=== PATIENT | male | born 1975 | race Caucasian/White ===

== ENCOUNTER 2020-10-01 09:27 | Outpatient (CLI) | payer OTHER, SELFPAY ==
[2020-10-01 10:50] LABS: Influenza A QL RT-PCR Negative (Negative); Influenza B QL RT-PCR Negative (Negative); SARS-CoV-2 RNA PCR Negative (Negative)
== END 2020-10-01 09:28 | disposition home or self-care (01) ==
PROVIDERS: PCP Internal Medicine; Visit Provider Internal Medicine
DX: R50.9 Fever, unspecified (principal); R52 Pain, unspecified; Z20.822 Contact with and (suspected) exposure to COVID-19
CPT/HCPCS: 87502; C9803; U0003; U0005

== ENCOUNTER 2020-10-08 05:05 | Emergency (ER) | payer OTHER, SELFPAY ==
--- NOTE | ~2020-10-08 | XR_ITS ---
EXAMINATION: XR chest 2V DATE: 10/08/2020 06:20 INDICATION: Chills and diarrhea TECHNIQUE: PA and lateral views of the chest were obtained. COMPARISON: Chest radiograph dated 03/09/2015 FINDINGS: Consolidation with air bronchograms in the posterior left lower lobe consistent with pneumonia. Right lung remains clear. No pleural effusion or pneumothorax. The cardiomediastinal silhouette is normal. Visualized bones and soft tissues are unremarkable. IMPRESSION: 1. Left lower lobe pneumonia. Reviewed, dictated and finalized at location A.
[2020-10-08 05:05] VITALS: BP 127/89; PULSE 95; RESP 20; TEMP 36.1; O2SAT 97
--- NOTE | 2020-10-08 05:22 | ECG_ITS ---
Measurements Intervals [place] Rate: 89 P: 36 KS: 163 QRS: -2 QRSD: 105 T: 15 QT: 346 QTc: 423 Interpretive Statements SINUS RHYTHM NORMAL ECG Electronically Signed On 10-08-2020 7:15:17 CDT by Jake Javier D.O.
--- NOTE | 2020-10-08 05:26 | ED.SOB ---
HPI - SOB/Dyspnea General Chief Complaint: Shortness of Breath/Dyspnea Stated Complaint: sickness Time Seen by Provider: 10/08/20 05:20 Source: patient Mode of arrival: ambulatory Limitations: no limitations History of Present Illness HPI Narrative: Patient comes in stating he has had mild shortness of breath, associated with anxiety, poor appetite, feeling he can't eat or sleep, with loose stools. He states he has body aches, has been cold and hot, and has felt clammy at times. He has felt short of breath at times. He cannot focus to give me any sort of coherent history. It appears that this has been associated with moderately severe anxiety, ongoing for at least a week. No modifying factors, or other associates signs or symptoms. He cannot identify any precipitaing cause for these symptoms. MD elicited complaint: shortness of breath Pertinent past history: other (anxiety disorder) Onset (ago): week(s) Context: anxiety Timing: constant Severity: severe Exacerbating factors: stress Associated symptoms: denies other symptoms Related Data Home Medications Medication Instructions Recorded Confirmed lisinopril 5 mg PO DAILY 10/08/20 10/08/20 lovastatin 20 mg PO BOLUS 10/08/20 10/08/20 Allergies Allergy/AdvReac Type Severity Reaction Status Date / Time No Known Allergies Allergy Verified 10/08/20 05:17 Review of Systems Constitutional: Constitutional: Reports chills, Reports fatigue and Reports weakness Eyes: Eyes: Reports no additional eye complaints ENT: Reports system reviewed and no additional complaints, except as documented Cardiovascular: Cardiovascular: Reports no additional cardiovascular complaints Respiratory: Respiratory: Reports dyspnea Gastrointestinal: Gastrointestinal: Reports diarrhea Genitourinary: Genitourinary: Reports no additional male genitourinary complaints Musculoskeletal: Musculoskeletal: Reports no additional musculoskeletal complaints Integumentary/Breasts: Skin/Breast: Reports system reviewed and no additional complaints, except as docu Neurologic: Reports system reviewed and no additional complaints, except as documented Psychiatric: Psychiatric: Reports no additional psychiatric complaints Endocrine: Endocrine: Reports excessive sweating Comments: diaphoretic at times Hematologic/Lymphatic: Hematologic/Lymphatic: Reports no additional hematologic/lymphatic complaints Allergic/Immunologic: Allergic/Immunologic: Reports no additional allergic/immunologic complaints PMFSH Past Medical History Medical History (Updated 10/08/20 @ 07:13 by Hever Boateng MD) HTN (hypertension) Hyperlipidemia Nail fungus Renal calculi Surgical History Surgical History (Updated 10/08/20 @ 06:13 by Hever Boateng MD) H/O rhinoplasty History of carpal tunnel surgery History of lithotripsy Family History Family History (Updated 10/08/20 @ 06:15 by Hever Boateng MD) Mother Cerebrovascular accident Father Heart disease Myocardial infarction Social History Social History (Updated 10/08/20 @ 06:16 by Hever Boateng MD) Smoking status: Never smoker Alcohol use details: rare minimal alcohol use Substance use: never Exam Const: General: healthy appearing and no acute distress Orientation/consciousness: patient oriented x3 HENMT: Head: normal to inspection Ears: external ears normal and TM's normal bilaterally General nose exam: Normal external nose present Mouth: Yes Normal oral and palatal mucosa present Throat: posterior oropharynx normal Eyes: Conjunctivae: conjunctivae normal Neck: Neck: normal visual inspection Chest: Chest palpation & inspection: normal inspection of the chest Resp: Effort & Inspection: normal respiratory effort Auscultation: clear to auscultation bilaterally Cardio: Rate: regular rate Rhythm: regular rhythm GI: GI Palp: Yes Soft to palpation (nontender) Auscultation: normal bowel sounds Back/Spine/Pelvis: Back: no CVA tende
[2020-10-08] MEDS: LACTATED RINGERS 1,000 ML 250 ML IV CONT (05:44)
[2020-10-08 05:59] LABS: Hematocrit 41.6 % (40.0-54.0); Hemoglobin 14.1 g/dL (14.0-18.0); Immature Platelet Fraction Pct 4.1 % (1.0-7.0); Mean Corpuscular HGB Conc 33.9 g/dL (32.0-36.0); Mean Corpuscular Hemoglobin 30.5 pg (27.0-31.0); Mean Platelet Volume 10.7 fl (8.7-11.0); Platelet Count Result 122 K/mm3 (150-420); Red Blood Count 4.62 M/mm3 (4.70-6.10); Red Cell Distribution Width 11.7 % (11.6-14.4); White Blood Count 3.7 K/mm3 (4.8-10.8)
[2020-10-08 06:03] LABS: Add Urine Microscopic? YES; Appearance Urine Clear (Clear); Bilirubin Urine Negative (Negative); Blood Urine Negative (Negative); Color Urine Yellow (Yellow); Glucose Urine UA Negative (Negative); Ketones Urine Trace (Negative); Leukocyte Esterase Ur Negative (Negative); Nitrate Urine Negative (Negative); Protein Urine Trace (Negative); Specific Grav Ur 1.025 (1.010-1.020); Urobilinogen Urine 0.2 mg/dL (0.2-1.0); pH Urine 5.5 (5.0-8.0)
[2020-10-08 06:06] LABS: Bacteria Urine Trace /hpf; Mucus Urine Few /lpf; RBC Urine None seen /hpf (0-2); Squamous Epithelial Cell Urine Few /hpf (Few); WBC Urine None seen /hpf (0-3)
[2020-10-08 06:18] LABS: Alanine Aminotransferase 34 U/L (16-63); Albumin Level 3.4 g/dL (3.4-5.0); Alkaline Phosphatase 56 U/L (46-116); Amphetamine Screen Urine Negative (Negative); Anion Gap 10 mmol/L (8-16); Aspartate Amino Transferase 31 U/L (15-37); Barbiturate Screen Urine Negative (Negative); Benzodiazepines Screen Urine Negative (Negative); Bilirubin,Total 0.5 mg/dL (0.00-1.00); Blood Urea Nitrogen 13 mg/dL (7-18); Calcium 8.3 mg/dL (8.5-10.1); Cannabinoid Screen Urine Negative (Negative); Carbon Dioxide 29 mmol/L (21-32); Chloride 100 mmol/L (98-108); Cocaine Screen Urine Negative (Negative); Estimated CRCL calculation 87 ml/min; Estimated Glomerular Filt Rate > 60; Glucose 97 mg/dL (70-99); Methadone Screen Urine Negative (Negative); Opiate Screen Urine Negative (Negative); Osmolality Calculated 288 mOsm/kg (285-295); Phencyclidine Screen Urine Negative (Negative); Potassium 3.7 mmol/L (3.5-5.1); Sodium 139 mmol/L (136-145); Total Protein 7.6 g/dL (6.4-8.2)
[2020-10-08 06:22] LABS: CRP 5.1 mg/dL (0.0-0.9); D Dimer 0.33 mg/L (0.19-0.50); Magnesium 2.1 mg/dL (1.8-2.4)
[2020-10-08 06:22] LABS: NT Pro B Type Natriuretic Pept 21 pg/mL (0-125); Troponin I 5.2 ng/L (0.00-60.4)
[2020-10-08 06:27] LABS: Band Neutrophils Percent 0 % (0-6); Basophils Percent Manual 0 % (0-1); Eosinophils Absolute Manual 0.03 K/mm3 (0.02-0.5); Eosinophils Percent Manual 1 % (1-6); Lymphocytes Absolute Manual 0.99 K/mm3 (1.1-4.5); Lymphocytes Percent Manual 27 % (18-44); Monocytes Absolute Manual 0.51 K/mm3 (0.1-0.90); Monocytes Percent Manual 14 % (3-9); Neutrophils Absolute Manual 2.14 K/mm3 (1.3-6.7); Neutrophils Percent Manual 58 % (46-73); Total Cells Counted 100
[2020-10-08 06:28] LABS: Platelet Estimate Adequate (Adequate)
[2020-10-08 06:32] VITALS: BP 119/80; PULSE 79; RESP 18; O2SAT 97
[2020-10-08 06:34] LABS: Free T4 Free Thyroxine 1.35 ng/dL (0.76-1.46)
[2020-10-08 06:40] LABS: SARS-CoV-2 RNA PCR Negative (Negative)
[2020-10-08 06:41] LABS: Influenza B QL RT-PCR Negative (Negative)
[2020-10-08 06:42] LABS: Influenza A QL RT-PCR Negative (Negative)
[2020-10-08 07:02] LABS: Erythrocyte Sedimentation Rate 40 mm/hr (0-15)
[2020-10-08 07:14] VITALS: BP 120/80; PULSE 72; RESP 18; TEMP 36.6; O2SAT 97
== END 2020-10-08 07:17 | disposition home or self-care (01) ==
PROVIDERS: Emergency Provider Emergency Medicine; PCP Internal Medicine
DX: J18.9 Pneumonia, unspecified organism (principal); Z20.822 Contact with and (suspected) exposure to COVID-19; I10 Essential (primary) hypertension; E78.5 Hyperlipidemia, unspecified
CPT/HCPCS: 36415; 71046; 80053; 80307; 81001; 83605; 83735; 83880; 84439; 84443; 84484; 85025; 85055; 85380; 85652; 86140; 87502; 93005; 96360; 99283; 99284; C9803; J7120; U0003; U0005

== ENCOUNTER 2020-10-17 17:43 | Outpatient (CLI) | payer OTHER, SELFPAY ==
--- NOTE | ~2020-10-17 | XR_ITS ---
EXAMINATION: XR chest 2V DATE: 10/17/2020 17:58 INDICATION: Pneumonia, shortness of breath TECHNIQUE: PA and lateral views of the chest are obtained. COMPARISON: 10/08/2020 FINDINGS: There are persistent but decreased opacities of left lower lobe. There is no pleural effusi on or pneumothorax. The cardiomediastinal silhouette is normal. The visualized bones and soft tissues are unremarkable. IMPRESSION: 1. Persistent but decreased opacities of the left lower lobe, consistent with resolving pneumonia. Reviewed, dictated and finalized at location A. IMPRESSION: 1. Persistent but decreased opacities of the left lower lobe, consistent with r esolving pneumonia.
== END 2020-10-17 17:44 | disposition home or self-care (01) ==
LOC: CHSIMG 17:45
PROVIDERS: PCP Internal Medicine; Visit Provider Internal Medicine
DX: J18.9 Pneumonia, unspecified organism (principal)
CPT/HCPCS: 71046

== ENCOUNTER 2020-10-31 16:52 | Outpatient (CLI) | payer OTHER, SELFPAY ==
--- NOTE | ~2020-10-31 | XR_ITS ---
XR chest 2V DATE: 10/31/2020 17:08 INDICATION: Pneumonia 4 weeks ago TECHNIQUE: 2 views COMPARISON: 10/17/2020 and 10/08/2020 two-view chest radiographic examination FINDINGS: Normal heart size. No hilar or mediastinal enlargement. The lungs are clear of infiltrate or consolidation. There is interval resolution of left lower lobe i nfiltrate since 10/08/2020. No pleural effusion or pulmonary vascular congestion or pneumothorax. IMPRESSION: No active cardiopulmonary disease; resolution of left lower lobe pneumonia Reviewed, dictated and finalized at location A. IMPRESSION: No active cardiopulmonary disease; resolution of left lower lobe pn eumonia
== END 2020-10-31 16:53 | disposition home or self-care (01) ==
LOC: CHSIMG 16:54
PROVIDERS: PCP Internal Medicine; Visit Provider Internal Medicine
DX: J18.9 Pneumonia, unspecified organism (principal)
CPT/HCPCS: 71046

== ENCOUNTER 2020-12-12 17:07 | Outpatient (CLI) | payer OTHER, SELFPAY ==
--- NOTE | ~2020-12-12 | CT_ITS ---
EXAMINATION: CT abdomen pelvis wo con DATE: 12/12/2020 17:30 INDICATION: Painful hematuria. Left flank pain. TECHNIQUE: Computed tomography (CT) of the abdomen and pelvis was performed without intravenous contr ast. Automated exposure control and iterative reconstruction technique were employed. The dose-length product was 313.68 mGy-cm. COMPARISON: 09/09/2017 FINDINGS: Lung bases are clear. Heart size is normal. No pericardial or pleural effusion. Liver, decompressed g allbladder, spleen, pancreas and bilateral adrenal glands are normal. Bilateral kidneys are normal wi th no nephrolithiasis or hydronephrosis. 2-3 mm stone in the distal left ureter approximately 5 cm pr oximal to the ureterovesicular junction. There is minimal inflammatory stranding surrounding the uret er at the site of the stone. There is mild colonic diverticulosis with a sigmoid predominance. There is no adjacent inflammatory change to suggest diverticulitis. Small bowel and appendix are normal. Bladder is normal. No free intraperitoneal gas or fluid. No pathologically enlarged abdominal or pelv ic lymphadenopathy. Chronic mild anterior wedging at T12. IMPRESSION: 1. Nonobstructing 2-3 mm distal left ureteral stone. 2. Mild diverticulosis. Reviewed, dictated and finalized at location A.
== END 2020-12-12 17:08 | disposition home or self-care (01) ==
LOC: CHSIMG 17:11
PROVIDERS: PCP Internal Medicine; Visit Provider Internal Medicine
DX: R31.9 Hematuria, unspecified (principal); R10.9 Unspecified abdominal pain
CPT/HCPCS: 74176

== ENCOUNTER 2021-05-03 14:33 | Outpatient (CLI) | payer OTHER, SELFPAY ==
[2021-05-03 16:59] LABS: Influenza A QL RT-PCR Negative (Negative); Influenza B QL RT-PCR Negative (Negative); SARS-CoV-2 RNA PCR Negative (Negative)
== END 2021-05-03 14:34 | disposition home or self-care (01) ==
LOC: CHSLAB 14:36
PROVIDERS: PCP Internal Medicine; Visit Provider Internal Medicine
DX: J06.9 Acute upper respiratory infection, unspecified (principal); Z20.822 Contact with and (suspected) exposure to COVID-19
CPT/HCPCS: 87502; C9803; U0003; U0005

== ENCOUNTER 2024-09-03 08:50 | Outpatient (CLI) | payer BC, SELFPAY ==
--- OUTSIDE RECORDS SUMMARY | 2024-09-03 08:58 | XMS_ITS | Clinical Summary ---
Author Organization [facility] Address [address] [place] [address] Care Team Providers Care Enrichment Specialist Name Role Phone Dee Dee Edwards MD Primary Care Provider Allergies No known active allergies Medications lovastatin (MEVACOR) 20 MG tablet Take 1 tablet (20 mg total) by mouth daily with supper. Active lisinopril (PRINIVIL) 20 MG tablet Take 1 tablet (20 mg total) by mouth daily. Active venlafaxine XR (EFFEXOR-XR) 37.5 MG 24 hr capsule Take 1 capsule (37.5 mg total) by mouth daily. Active ondansetron (ZOFRAN-ODT) 4 MG disintegrating tablet Take 1 tablet (4 mg total) by mouth every 8 (eight) hours as needed for Nausea. 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 Gender Identity Not on file Sexual Orientation Not on file Last Filed Vital Signs Vital Sign Reading Time Taken Comments Blood Pressure 137/90 01/04/2023 11:30 AM CDT Pulse 70 01/04/2023 11:30 AM CDT Temperature 35.3 C (95.5 F) 01/04/2023 10:04 AM CDT Respiratory Rate 18 01/04/2023 11:30 AM CDT Oxygen Saturation 99% 01/04/2023 11:30 AM CDT Inhaled Oxygen Concentration - - Weight 106.1 kg (234 lb) 01/04/2023 10:04 AM CDT Height 190.5 cm (6' 3 ) 01/04/2023 10:04 AM CDT Body Mass Index 29.25 01/04/2023 10:04 AM CDT Plan of Treatment Health Maintenance Due Date Last Done Comments Colorectal Cancer Screening Colonoscopy (10 Years) 1973 Annual Physical 01/09/1976 Hepatitis C 1991 Hepatitis B Vaccines (1 of 3 - 19+ 3-dose series) 01/09/1992 Zoster Vaccines (1 of 2) 2023 COVID-19 Vaccine (3 - 2023-2 5 season) 2024 01/06/2021, 12/14/2020 Influenza Adult (#1) 2024 DTaP, Tdap and Td Vaccines ( 2 - Td or Tdap) 05/19/2026 05/19/2016 Meningococcal B Vaccine Aged Out No l onger eligible based on patient's age to complete this topic Meningococcal Vaccine Aged Out No yamilet bettye eligible based on patient's age to complete this topic Pneumococcal Vaccine: Pediatrics (0 to 5 Years) and At-Risk Patients (6 to 64 Years) Aged Out No longer eligible b ased on patient's age to complete this topic RSV Immunizations Under 20 Months Aged Out No longer eligible b ased on patient's age to complete this topic Insurance Care Teams Enrichment Specialist Relationship Specialty Start Date End Date Dee Dee Edwards MD [address] [place] [address] PCP - General INTERNAL MEDICINE 01/04/23
--- OUTSIDE RECORDS SUMMARY | 2024-09-03 08:58 | XMS_ITS | Encounter Summary ---
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
[2024-09-03 10:31] LABS: Alanine Aminotransferase 33 U/L (16-63); Albumin Level 4.2 g/dL (3.4-5.0); Alkaline Phosphatase 82 U/L (46-116); Anion Gap 3 mmol/L (4-12); Aspartate Amino Transferase 21 U/L (15-37); Bilirubin,Total 0.7 mg/dL (0.00-1.00); Blood Urea Nitrogen 12 mg/dL (7-18); Calcium 8.9 mg/dL (8.5-10.1); Carbon Dioxide 33 mmol/L (21-32); Chloride 106 mmol/L (98-108); Cholesterol 183 mg/dL (0-200); Creatine Kinase 134 U/L (39-308); Estimated Glomerular Filt Rate > 60; Glucose 89 mg/dL (70-99); HDL Direct 51 mg/dL (40-60); LDL Cholesterol Calculated 114 mg/dL (<130); Osmolality Calculated 292 mOsm/kg (285-295); Potassium 4.4 mmol/L (3.5-5.1); Sodium 142 mmol/L (136-145); Total Protein 7.6 g/dL (6.4-8.2); Triglycerides 88 mg/dL (0-150)
[2024-09-03 10:41] LABS: Add Urine Microscopic? NO; Appearance Urine Clear (Clear); Bilirubin Urine Negative (Negative); Blood Urine Negative (Negative); Color Urine Light Yellow (Yellow); Glucose Urine UA Negative (Negative); Ketones Urine Negative (Negative); Leukocyte Esterase Ur Negative (Negative); Nitrate Urine Negative (Negative); Protein Urine Negative (Negative); Specific Grav Ur <= 1.005 (1.010-1.020); Urobilinogen Urine 0.2 mg/dL (0.2-1.0)
== END 2024-09-03 08:51 | disposition home or self-care (01) ==
PROVIDERS: PCP Internal Medicine; Visit Provider Internal Medicine
DX: I10 Essential (primary) hypertension (principal); E78.2 Mixed hyperlipidemia
CPT/HCPCS: 36415; 80053; 80061; 81003; 82550